=== PATIENT | female | born 1975 | race Caucasian/White ===

== ENCOUNTER 2018-01-31 17:03 | Inpatient (IN) | payer SELFPAY ==
[~2018-01-31] VITALS: Ht 170.2 cm; Wt 77.8 kg
[2018-01-31 18:18] LABS: PLATELET COUNT 478 x10^3mcL (130-400); RED CELL DISTRIBUTION WIDTH 14.6 % (11.5-14.5)
[2018-01-31 18:20] LABS: CALCIUM 10.3 mg/dL (8.5-10.1); CARBON DIOXIDE 22.6 mmol/L (21-32); CHLORIDE SERUM 101 mmol/L (98-107); CREATININE SERUM 3.1 mg/dL (0.6-1.0); GFR1 18 mL/min; POTASSIUM SERUM 5.1 mmol/L (3.5-5.1); SODIUM SERUM 148 mmol/L (136-145)
[2018-01-31 18:22] LABS: ALKALINE PHOSPHATASE 186 U/L (46-116); ALT/SGPT 32 U/L (14-59); AST/SGOT 11 U/L (15-37); BILIRUBIN TOTAL 0.36 mg/dL (0.20-1.00)
[2018-01-31 18:24] LABS: ALBUMIN 2.6 g/dL (3.4-5.0); TOTAL PROTEIN, SERUM 9.4 g/dL (6.4-8.2)
[2018-01-31 18:34] LABS: GLUCOSE SERUM 1326 mg/dL (74-106)
[2018-01-31 18:39] LABS: BAND NEUTROPHIL 3 % (0-10); BASOPHIL 0 % (0-2); MONOCYTE 3 % (0-7); SEGMENTED NEUTROPHILS 85 % (37-75); rbc morphology (normal/abnorm) ABNORMAL (NORMAL)
[2018-01-31 19:34] LABS: microscopic required? YES; urine erythrocyte 1+ (NEGATIVE)
[2018-01-31 19:42] LABS: AMPHETAMINE QUAL UR POSITIVE (NEG <=1000)
[2018-01-31 21:32] LABS: T3 TOTAL 0.44 ng/mL
[2018-01-31 21:40] LABS: PHOSPHOROUS 8.9 mg/dL (2.5-4.9)
[2018-01-31 21:44] LABS: FREE T4 1.53 ng/dL (0.76-1.46); T4(THYROXINE) 8.3 ug/dL (4.7-13.3)
[2018-01-31 21:45] LABS: CHOLESTEROL/HDL RATIO 7.2
[2018-01-31 21:51] LABS: CALCIUM 8.6 mg/dL (8.5-10.1); CARBON DIOXIDE 25.2 mmol/L (21-32); CREATININE SERUM 2.4 mg/dL (0.6-1.0); MAGNESIUM 3.5 mg/dL (1.8-2.4); PHOSPHOROUS 3.4 mg/dL (2.5-4.9); POTASSIUM SERUM 3.5 mmol/L (3.5-5.1)
[2018-01-31 22:13] VITALS: BP 97/74
[2018-01-31] MEDS ORDERED: LANTUS SOLOS100 U/M1 SC (22:31)
[2018-01-31 23:25] VITALS: BP 126/75
[2018-02-01 03:14] LABS: CREATININE SERUM 2.1 mg/dL (0.6-1.0); MAGNESIUM 3.5 mg/dL (1.8-2.4); PHOSPHOROUS 2.9 mg/dL (2.5-4.9); POTASSIUM SERUM 3.7 mmol/L (3.5-5.1)
[2018-02-01 03:42] VITALS: BP 107/87
[2018-02-01 05:34] LABS: RED CELL DISTRIBUTION WIDTH 13.9 % (11.5-14.5)
[2018-02-01 05:46] LABS: BASOPHIL % 0 % (0-2); PLATELET COUNT 435 x10^3mcL (130-400)
[2018-02-01 05:51] LABS: CALCIUM 8.8 mg/dL (8.5-10.1); CARBON DIOXIDE 29.2 mmol/L (21-32); CREATININE SERUM 1.8 mg/dL (0.6-1.0); MAGNESIUM 3.3 mg/dL (1.8-2.4); PHOSPHOROUS 3.1 mg/dL (2.5-4.9); POTASSIUM SERUM 3.6 mmol/L (3.5-5.1)
[2018-02-01 07:45] VITALS: BP 125/88
[2018-02-01 09:03] VITALS: Ht 170.2 cm; Wt 77.8 kg
[2018-02-01 09:19] LABS: CALCIUM 8.7 mg/dL (8.5-10.1); CARBON DIOXIDE 29.5 mmol/L (21-32); CREATININE SERUM 1.6 mg/dL (0.6-1.0); MAGNESIUM 3.2 mg/dL (1.8-2.4); PHOSPHOROUS 3.3 mg/dL (2.5-4.9); POTASSIUM SERUM 3.6 mmol/L (3.5-5.1)
[2018-02-01 12:25] VITALS: BP 133/83
[2018-02-01 14:47] LABS: CALCIUM 8.1 mg/dL (8.5-10.1); CARBON DIOXIDE 28.5 mmol/L (21-32); CREATININE SERUM 1.7 mg/dL (0.6-1.0); MAGNESIUM 3.1 mg/dL (1.8-2.4); PHOSPHOROUS 3.7 mg/dL (2.5-4.9)
[2018-02-01 15:33] VITALS: BP 132/89
[2018-02-01 17:39] LABS: CALCIUM 7.7 mg/dL (8.5-10.1); CARBON DIOXIDE 29.1 mmol/L (21-32); CREATININE SERUM 1.9 mg/dL (0.6-1.0); MAGNESIUM 2.7 mg/dL (1.8-2.4); PHOSPHOROUS 3.4 mg/dL (2.5-4.9); POTASSIUM SERUM 3.8 mmol/L (3.5-5.1)
[2018-02-01 20:16] VITALS: BP 128/75
[2018-02-01 20:59] LABS: CALCIUM 7.8 mg/dL (8.5-10.1); CARBON DIOXIDE 29.5 mmol/L (21-32); MAGNESIUM 2.8 mg/dL (1.8-2.4); PHOSPHOROUS 3.1 mg/dL (2.5-4.9); POTASSIUM SERUM 3.6 mmol/L (3.5-5.1)
[2018-02-01 23:51] VITALS: BP 127/78
[2018-02-02 00:45] LABS: CALCIUM 7.8 mg/dL (8.5-10.1); CARBON DIOXIDE 27.5 mmol/L (21-32); CREATININE SERUM 1.9 mg/dL (0.6-1.0); POTASSIUM SERUM 3.5 mmol/L (3.5-5.1)
[2018-02-02 03:31] VITALS: BP 125/85
[2018-02-02 05:04] LABS: PLATELET COUNT 276 x10^3mcL (130-400)
[2018-02-02 05:15] LABS: CALCIUM 7.5 mg/dL (8.5-10.1); CARBON DIOXIDE 28.1 mmol/L (21-32); CREATININE SERUM 1.7 mg/dL (0.6-1.0); MAGNESIUM 2.5 mg/dL (1.8-2.4); PHOSPHOROUS 3.1 mg/dL (2.5-4.9); POTASSIUM SERUM 3.1 mmol/L (3.5-5.1)
[2018-02-02 05:32] LABS: BAND NEUTROPHIL 22 % (0-10); METAMYELOCTE 5 % (0-2); MONOCYTE 1 % (0-7); SEGMENTED NEUTROPHILS 61 % (37-75)
[2018-02-02 05:33] LABS: PLATELET MORPHOLOGY LARGE PLATELET SEEN; rbc morphology (normal/abnorm) NORMAL (NORMAL)
[2018-02-02 07:32] VITALS: BP 130/77
[2018-02-02 11:12] VITALS: BP 141/91
[2018-02-02 13:17] LABS: CALCIUM 7.4 mg/dL (8.5-10.1); CARBON DIOXIDE 26.6 mmol/L (21-32); CREATININE SERUM 1.6 mg/dL (0.6-1.0); POTASSIUM SERUM 3.7 mmol/L (3.5-5.1)
[2018-02-02 15:08] VITALS: BP 127/85
[2018-02-02 18:23] LABS: CARBON DIOXIDE 24.4 mmol/L (21-32); CREATININE SERUM 1.5 mg/dL (0.6-1.0); POTASSIUM SERUM 3.7 mmol/L (3.5-5.1)
[2018-02-02 19:30] VITALS: BP 125/72
[2018-02-02 23:00] VITALS: BP 113/71
[2018-02-03 00:38] LABS: CARBON DIOXIDE 27.6 mmol/L (21-32); CREATININE SERUM 1.4 mg/dL (0.6-1.0); POTASSIUM SERUM 3.2 mmol/L (3.5-5.1)
[2018-02-03 03:25] VITALS: BP 111/58
[2018-02-03 05:32] LABS: BASOPHIL % 0.1 % (0-2); PLATELET COUNT 191 x10^3mcL (130-400); RED CELL DISTRIBUTION WIDTH 13.9 % (11.5-14.5)
[2018-02-03 05:35] LABS: CALCIUM 7.6 mg/dL (8.5-10.1); CARBON DIOXIDE 25.2 mmol/L (21-32); CREATININE SERUM 1.3 mg/dL (0.6-1.0); MAGNESIUM 2.3 mg/dL (1.8-2.4); PHOSPHOROUS 2.7 mg/dL (2.5-4.9)
[2018-02-03 09:51] VITALS: BP 125/83
[2018-02-03 11:15] VITALS: BP 122/74
[2018-02-03 18:09] VITALS: BP 155/93
[2018-02-03 21:49] VITALS: BP 139/90
[2018-02-04 06:29] VITALS: BP 117/74
[2018-02-04 06:40] LABS: BASOPHIL % 0.3 % (0-2); PLATELET COUNT 158 x10^3mcL (130-400); RED CELL DISTRIBUTION WIDTH 13.2 % (11.5-14.5)
[2018-02-04 07:05] LABS: CALCIUM 7.9 mg/dL (8.5-10.1); CARBON DIOXIDE 27.3 mmol/L (21-32); CREATININE SERUM 1.1 mg/dL (0.6-1.0); POTASSIUM SERUM 3.7 mmol/L (3.5-5.1)
[2018-02-04 08:00] VITALS: BP 133/62
[2018-02-04 10:00] VITALS: BP 136/80
[2018-02-04 14:07] VITALS: BP 136/80
== END 2018-02-04 15:50 | disposition home or self-care (01) | DRG 637 ==
LOC: ED 17:03 → DU 20:33 → IC 20:33 → DU 02-03 15:02
PROVIDERS: Emergency Medicine; Family Medicine; Family Medicine Sports Medicine
PROC: 02HV33Z Insertion of Infusion Device into Superior Vena Cava, Percutaneous Approach (ICD-10-PCS; principal; 2018-02-01)
PROC: B5181ZA Fluoroscopy of Superior Vena Cava using Low Osmolar Contrast, Guidance (ICD-10-PCS; 2018-02-01)
DX: E11.00 Type 2 diabetes mellitus with hyperosmolarity without nonketotic hyperglycemic-hyperosmolar coma (NKHHC) (principal); K85.90 Acute pancreatitis without necrosis or infection, unspecified; N17.0 Acute kidney failure with tubular necrosis; E43 Unspecified severe protein-calorie malnutrition; I10 Essential (primary) hypertension; E83.41 Hypermagnesemia; E78.1 Pure hyperglyceridemia; D47.3 Essential (hemorrhagic) thrombocythemia; E83.39 Other disorders of phosphorus metabolism; Z79.4 Long term (current) use of insulin; Y92.009 Unspecified place in unspecified non-institutional (private) residence as the place of occurrence of the external cause; Z80.3 Family history of malignant neoplasm of breast; Z82.49 Family history of ischemic heart disease and other diseases of the circulatory system; Z87.891 Personal history of nicotine dependence; Z68.24 Body mass index [BMI] 24.0-24.9, adult
CPT/HCPCS: 36556; 36600; 82962; 83880; 84439; G0480; J0696; J1450; J1642; J1644; J1815; J1885; J2060; J2310; J2405; J2543; J3480; J3490; J7030; Q0092